=== PATIENT | male | born 1985 | race Caucasian/White ===

== ENCOUNTER 2023-11-08 16:17 | Emergency (ER) | payer OTHER, SELFPAY ==
[2023-11-08 16:21] VITALS: BP 152/100
[2023-11-08] MEDS: ADACEL 0.5 ML IM (16:43)
[2023-11-08] MEDS: PERCOCET 5/325 1 TABLET PO (16:43)
--- NOTE | 2023-11-08 17:14 | ED.GENMED ---
History of Present Illness
General
Chief Complaint: Skin Surface Trauma
Source: patient
Exam Limitations: none
Time Seen by Provider: 11/08/23 16:30
Travel History
Have you had any contact with someone who has COVID-19?: No
Do you have any symptoms of coronavirus? Fever > 100 degrees, chills, cough, shortness of breath, sore throat, loss of taste or smell, muscle aches, or headache?: No
History of Present Illness
History of Present Illness:
See MDM
Past History
Past History
ED Past Medical History: None
ED Past Surgical History: None
Social History
Personal:
Living: with family
Employment: Employed ([employer])
Phy Exam
Physical Exam
Physical Exam:
See MDM
Course
Orders/Labs/Results
Orders:
Orders
11/08/23 16:31
Oxycodone/Acetaminophen [Percocet 5/325] 1 tablet PO NOW STA
Tetanus/Diphth/Acelpertussis [Adacel] 0.5 ml IM .ONCE ONE
Finger(s)/Thumb 2 View Rt [CR Finger(s)/thumb Min 2 Vw Rt] Urgent
Comment:
Reason For Exam: pinky crush injury
Vital Signs
Initial and Last Documented VS:
Initial Vital Signs
Temp Pulse Resp BP Pulse Ox
97.5 F 69 16 152/100 98
11/08/23 16:21 11/08/23 16:21 11/08/23 16:21 11/08/23 16:21 11/08/23 16:21
Last Documented Vital Signs
Temp Pulse Resp BP Pulse Ox
97.5 F 69 16 152/100 98
11/08/23 16:21 11/08/23 16:21 11/08/23 16:21 11/08/23 16:21 11/08/23 16:21
Procedures
Laceration Closure
Right Middle Lateral Radial Fifth Finger:
Status of Wound: clean
Size of Wound in cm: 5
Description of Wound Edges: ragged
Preparation: cleaned with Betadine
Anesthesia: 1% Lidocaine
Revision/Debridement: routine- no revision
Wound exploration: explored to base- no FB
Type of Closure: single layer closure
Skin Closure Material: 4-0 nylon
Number of sutures: 7
MDM/Problems Addressed
Differential Diagnosis Includes:
HPI and MDM Narrative:
38-year-old male presenting for evaluation of a crush injury to his right pinky. Patient was doing yard work and he was dealing with a rock wall. Patient states he got his finger stuck between 2 boulders. He denies numbness or tingling. He is
unsure about his last tetanus shot.
On exam, patient has laceration noted to his right pinky. Flexion and extension appear to be intact. Sensation grossly intact. Cap refill less than 2 seconds
Physical exam
General: Well appearing and non-toxic
HEENT: protecting airway
Neck: appears supple
CV: No evidence of cyanosis
Resp: No accessory muscle use
Abd: Non-distended
Extremities: 5 cm laceration along radial side of right pinky. No evidence of ligament involvement
Neuro: alert
Psych: Normal affect
Skin: Intact
Problems Addressed including Acute and Chronic Conditions affecting care:
1. Right pinky injury
Acuity: acute
Prognosis: stable
Details: 7 stitches placed. Finger neurovascular intact. Discussed follow-up with PCP as well as hand if he notices numbness or trouble with flexion or extension
Updates
Differential Diagnosis (but not limited to): Crush injury, laceration, fracture
Drug therapy (if applicable): OTC meds, please see d/c instruction regarding Rx drugs
Amount and/or Complexity of Data Reviewed
Clinical info obtained from: Patient
External data reviewed: N/A
Labs I independently reviewed (but not limited to): N/A
Radiology: X-ray independently reviewed: No finger fracture noted
Pulse Ox: not hypoxic
EKG independently reviewed: N/A
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
Critical Care: N/A
Risk of Complication:
Social Determinants of health: Good social support
Discussed with other providers: N/A
Escalation of Care includes Admit/Obs: After being observed in the Emergency Department, pt stable for discharge.
Occasional wrong word or 'sound a like' substitutions may have occurred due to the inherent limitations of voice recognition software. Read the chart carefully and recognize, using context, where substitutions have occurred.
*Critical Care Note
Total Time (30-74mins, 75-104mins- exclusive of procedures): Not Applicable
ED Attending Note
-
Portions of this chart may have been created with voice recognition software.� Occasional wrong word or��sound alike� substitutions may have occurred due to the inherent limitations of voice recognition software.
Discharge Plan
Departure
Patient Disposition: Home (Routine Discharge)
Date of Disposition: 11/08/23
Time of Disposition: 17:21
Patient with high blood pressure during this ER visit?: Yes
Discharge Problem:
Laceration of finger
Instructions: Laceration Repair With Stitches (DC), BLOOD PRESSURE
Referrals:
Armando Arellano MD [Active] -
Activity Restrictions/Additional Instructions:
Keep wound clean and dry, change dressing if it becomes soiled or wet. Watch for signs of infection: fever over 100.5�, increasing pain, red streaks around wound, swelling, drainage of pus, or bad smell. If any of these happen, return to ED
promptly. Return to ED or make an appointment with your doctor to have the sutures removed in 10 days. All wounds may scar, however you may reduce the appearance of scarring by avoiding sun exposure to the scar and applying skin moisturizer with
spf protection to the scar once the wound is healed.
If you notice pain with finger movement or trouble with finger movement, please follow-up with a hand surgeon.
Interventions
Interventions:
*ED COVID-19 Vaccine History Last Done: 11/08/23 16:21
== END 2023-11-08 17:45 | disposition home or self-care (01) ==
LOC: EMR 16:17
PROVIDERS: EMERGENCY PHYSICIAN Student in an Organized Health Care Education/Training Program
DX: S61.216A Laceration without foreign body of right little finger without damage to nail, initial encounter (principal); W23.0XXA Caught, crushed, jammed, or pinched between moving objects, initial encounter; Y93.H9 Activity, other involving exterior property and land maintenance, building and construction; R03.0 Elevated blood-pressure reading, without diagnosis of hypertension
CPT/HCPCS: 99283; 12002; 90471; 73140; 90715

== ENCOUNTER → 2024-04-15 10:42 | Outpatient (REF) | payer OTHER, SELFPAY | LOC: RAD 10:42 | PROVIDERS: ATTENDING PHYSICIAN Orthopaedic Surgery | DX: S05.50XA Penetrating wound with foreign body of unspecified eyeball, initial encounter (principal) | CPT/HCPCS: 70030 ==